=== PATIENT | male | born 1945 | race Caucasian/White ===

== ENCOUNTER 2023-08-16 11:44 | Outpatient (AMB) | payer MEDICARE, SELFPAY ==
--- NOTE | 2023-08-16 12:07 | HO.NEPHOV ---
HPI HPI Comments History of Present Illness Details Elderly man with a history of renal artery stenosis status post angioplasty and stent placement in the past. His shortness on hypertension and underlying CKD. Recently had an episode of BRIAN due to hypoperfusion in the setting of diarrhea and continues Ty inhibitors. After discontinuing Benicar and with IV hydration renal function improved. He underwent extensive workup for possible common nephritis however the serological workup was negative. He did undergo a kidney biopsy at [facility]. He also history of bilateral renal cyst. There was 2-3 complex appearing .cyst & follow-up MRA showed no change in size since 2019. He underwent a PET scan which did not reveal any malignant lesions [facility] Medical History (Updated 08/16/23 @ 12:33 by Guilherme Lee MD) Sleep apnea HTN (hypertension) Gout Diabetes CKD (chronic kidney disease) stage 2, GFR 60-89 ml/min Anemia Vital Signs 08/16/23 12:11 Height 6 ft Weight 239 lb 6 oz BMI 32.5 BP 132/78 Blood Pressure Location Lt brachial Position Sitting Pulse 59 Pulse Source Pulse Oximeter Pulse Oximetry (%) 96 Oxygen Delivery Method Room Air Physical Exam Vital Signs: Last Vital Signs Pulse 59 08/16/23 12:11 BP 132/78 08/16/23 12:11 Pulse Ox 96 08/16/23 12:11 Oxygen Delivery Method Room Air 08/16/23 12:11 BMI result Body Mass Index 32.5 Const General: comfortable Nutritional Appearance: well nourished Orientation/consciousness: patient oriented x3 HEENT Head: No normal to inspection Mouth: moist mucous membranes Neck Neck: Yes supple and Yes no JVD Resp Auscultation: clear to auscultation bilaterally, no rales and rub present Cardio Jugular venous distension: no JVD Palpation: no palpable S3 and no palpable S4 Heart sounds: no rubs GI Palpation (GI): Soft to palpation and nontender Percussion: No Fluid wave present General: Yes no CVA tenderness Back/Spine/Pelvis Back: no CVA tenderness Skin General skin exam: no rashes or lesions noted Neuro General: patient oriented x3 Extrem General: Yes no pedal edema and No clubbing Results Reviewed Results Reviewed: All results reviewed. He underwent a CT scan which revealed unilateral hydronephrosis. There has been a mild bump in the serum creatinine. Assessment & Plan Assessment & Plan (1) CKD (chronic kidney disease) stage 3, GFR 30-59 ml/min: Code(s): N18.30 - Chronic kidney disease, stage 3 unspecified (2) Renal artery stenosis: Code(s): I70.1 - Atherosclerosis of renal artery Plan Tray has a history of acute kidney injury superimposed on chronic disease. Chronic kidney disease is due to underlying hypertensive nephrosclerosis in the setting of renovascular disease. He had an episode of BRIAN due to hypoperfusion in the setting of diarrhea and use of Benicar. AKA resolved with IV hydration. He has sustained another episode of BRIAN Review recent CT scan reveals hydronephrosis. I will refer him back to Urology for further intervention. Ordered a set of labs for today. 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 Status post stent placement. At present blood pressure is better controlled. I have not made any changes to the antihypertensive regimen. Orders: Orders Electrolytes 08/16/23 N17.9 - Acute kidney failure, unspecified Calcium 08/16/23 N17.9 - Acute kidney failure, unspecified Creatinine Urine 08/16/23 N17.9 - Acute kidney failure, unspecified Neutrophil Cytoplasma Ab 08/16/23 N17.9 - Acute kidney failure, unspecified Complement C3 08/16/23 N17.9 - Acute kidney failure, unspecified Blood Urea Nitrogen 08/16/23 N17.9 - Acute kidney failure, unspecified Creatinine 08/16/23 N17.9 - Acute kidney failure, unspecified UA and rflx microscopic 08/16/23 N17.9 - Acute kidney failure, unspecified Total Protein Urine Random 08/16/23 N17.9 - Acute kidney failure, unspecified Uric Acid 08/16/23 N17.9 - Acute kidney failure, unspecified Complete Blood Count no Diff 08/16/23 N17.9 - Acute kidney failure, unspecified Complement C4 08/16/23 N17.9 - Acute kidney failure, unspecified Coding Level of Care Code Est Pt Level 4 (50341) Diagnoses CKD (chronic kidney disease) stage 3, GFR 30-59 ml/min N18.30 Renal artery stenosis I70.1
[2023-08-16 12:11] VITALS: BP 132/78; PULSE 59; O2SAT 96; BMI 32.5
== END 2023-08-16 12:41 | disposition home or self-care (01) ==
PROVIDERS: PCP Internal Medicine; Visit Provider Internal Medicine Hypertension Specialist
DX: N18.30 Chronic kidney disease, stage 3 unspecified (principal); I70.1 Atherosclerosis of renal artery
CPT/HCPCS: 99214

== ENCOUNTER → 2023-08-16 11:44 | Outpatient (BNVA) | payer MEDICARE, SELFPAY | PROVIDERS: PCP Internal Medicine; Visit Provider Internal Medicine Hypertension Specialist | DX: N18.2 Chronic kidney disease, stage 2 (mild) (principal); N17.9 Acute kidney failure, unspecified; I70.1 Atherosclerosis of renal artery; I10 Essential (primary) hypertension; Z95.5 Presence of coronary angioplasty implant and graft | CPT/HCPCS: 99212 ==

== ENCOUNTER 2023-08-16 12:44 | Outpatient (REF) | payer MEDICARE, SELFPAY ==
[2023-08-16 13:24] LABS: Appearance Urine Clear; Color Urine Dark Yellow; Glucose Urine UA Negative (Negative); Leukocyte Esterase Urine Small (1+) (Negative); Nitrite Urine Negative (Negative); PH 5.5 (5.0-9.0); UMIC TRIGGER UA YES; Urine Blood Negative (Negative); Urine Ketones Trace mg/dL (Negative); Urine Protein >=1000 (4+) mg/dL (Neg-Trace)
[2023-08-16 13:42] LABS: Hematocrit 29.9 % (42.0-52.0); Hemoglobin 9.5 g/dl (14.0-18.0); Mean Corpuscular HGB Conc 31.8 g/dl (31.0-36.0); Mean Corpuscular Hemoglobin 28.4 pg (27.0-33.0); Mean Corpuscular Volume 89.3 fL (80.0-98.0); Mean Platelet Volume 9.9 fL (9.4-12.4); Platelet Count 183 X10*3/uL (160-400); Red Blood Count 3.35 X10*6/uL (4.60-5.80); White Blood Count 7.8 X10*3/uL (4.8-10.8)
[2023-08-16 14:13] LABS: Anion Gap 14 (12-20); Blood Urea Nitrogen 36 mg/dL (9-16); Calcium 9.2 mg/dL (8.4-10.2); Carbon Dioxide 27 mmol/L (22-29); Chloride 105 mmol/L (96-108); Estimated Glomerular Filt Rate 34; Potassium 4.9 mmol/L (3.3-5.1); Sodium 141 mmol/L (135-145); Uric Acid 8.2 mg/dL (3.4-7.0)
[2023-08-16 14:34] LABS: Bacteria Urine None Seen (None Seen); Granular Casts Urine Present; Hyaline Casts Urine >20 /LPF (0-2); RBC Urine 0-2 /HPF (0-2); WBC Urine 21-50 /HPF (0-5)
[2023-08-16 14:44] LABS: Total Protein Urine Random 630 mg/dL (<12)
[2023-08-17 17:24] LABS: Complement C3 94 mg/dL (82-185)
[2023-08-22 14:04] LABS: Neutrophil Cyto Ab Screen NEGATIVE (NEGATIVE)
== END 2023-08-16 12:45 | disposition home or self-care (01) ==
LOC: HO.10HDL 12:44
PROVIDERS: Visit Provider Internal Medicine Hypertension Specialist
DX: N17.9 Acute kidney failure, unspecified (principal)
CPT/HCPCS: 36415; 80051; 81001; 82310; 82565; 82570; 84156; 84520; 84550; 85027; 86036; 86160

== ENCOUNTER 2023-09-27 15:43 | Outpatient (REF) | payer MEDICARE, SELFPAY ==
[2023-09-27 17:47] LABS: Hematocrit 27.8 % (42.0-52.0); Hemoglobin 8.9 g/dl (14.0-18.0); Mean Corpuscular Hemoglobin 29.2 pg (27.0-33.0); Mean Corpuscular Volume 91.1 fL (80.0-98.0); Mean Platelet Volume 9.5 fL (9.4-12.4); Platelet Count 210 X10*3/uL (160-400); Red Blood Count 3.05 X10*6/uL (4.60-5.80); Red Cell Distribution Width 18.9 % (11.0-16.0); White Blood Count 7.3 X10*3/uL (4.8-10.8)
[2023-09-27 18:11] LABS: Anion Gap 13 (12-20); Blood Urea Nitrogen 37 mg/dL (9-16); Carbon Dioxide 26 mmol/L (22-29); Chloride 108 mmol/L (96-108); Estimated Glomerular Filt Rate 32; Potassium 4.3 mmol/L (3.3-5.1); Sodium 143 mmol/L (135-145); Uric Acid 9.3 mg/dL (3.4-7.0)
== END 2023-09-27 15:44 | disposition home or self-care (01) ==
LOC: HO.LAB 15:43
PROVIDERS: PCP Internal Medicine; Visit Provider Internal Medicine Hypertension Specialist
DX: N18.30 Chronic kidney disease, stage 3 unspecified (principal); I70.1 Atherosclerosis of renal artery
CPT/HCPCS: 36415; 80051; 82310; 82565; 84520; 84550; 85027; 99212

== ENCOUNTER 2023-09-27 15:43 | Outpatient (AMB) | payer MEDICARE, SELFPAY ==
[2023-09-27 15:44] VITALS: BP 144/62; PULSE 61; O2SAT 97; BMI 33.0
--- NOTE | 2023-09-27 15:44 | HO.NEPHOV ---
HPI HPI Comments History of Present Illness Details Elderly man with a history of renal artery stenosis status post angioplasty and stent placement in the past. His shortness on hypertension and underlying CKD. Recently had an episode of BRIAN due to hypoperfusion in the setting of diarrhea and continues Ty inhibitors. After discontinuing Benicar and with IV hydration renal function improved. He underwent extensive workup for possible common nephritis however the serological workup was negative. He did undergo a kidney biopsy at [facility]. He also history of bilateral renal cyst. There was 2-3 complex appearing .cyst & follow-up MRA showed no change in size since 2019. He underwent a PET scan which did not reveal any malignant lesions 09/27/23 Stent was removed Had UTI - treated with Cipro Feels better now [facility] Medical History Sleep apnea HTN (hypertension) Gout Diabetes CKD (chronic kidney disease) stage 2, GFR 60-89 ml/min Anemia Vital Signs 09/27/23 15:44 09/27/23 15:57 Height 6 ft Weight 243 lb 2 oz BMI 33.0 BP 144/62 H 130/60 Blood Pressure Location Lt brachial Position Sitting Pulse 61 Pulse Source Pulse Oximeter Pulse Oximetry (%) 97 Oxygen Delivery Method Room Air Physical Exam Vital Signs: Last Vital Signs Pulse 61 09/27/23 15:44 BP 130/60 09/27/23 15:57 Pulse Ox 97 09/27/23 15:44 Oxygen Delivery Method Room Air 09/27/23 15:44 BMI result Body Mass Index 33.0 Const General: comfortable Nutritional Appearance: well nourished Orientation/consciousness: patient oriented x3 HEENT Head: No normal to inspection Mouth: moist mucous membranes Neck Neck: Yes supple and Yes no JVD Resp Auscultation: clear to auscultation bilaterally, no rales and rub present Cardio Jugular venous distension: no JVD Palpation: no palpable S3 and no palpable S4 Heart sounds: no rubs GI Palpation (GI): Soft to palpation and nontender Percussion: No Fluid wave present General: Yes no CVA tenderness Back/Spine/Pelvis Back: no CVA tenderness Skin General skin exam: no rashes or lesions noted Neuro General: patient oriented x3 Extrem General: Yes no pedal edema and No clubbing Assessment & Plan Assessment & Plan (1) CKD (chronic kidney disease) stage 3, GFR 30-59 ml/min: Code(s): N18.30 - Chronic kidney disease, stage 3 unspecified (2) Renal artery stenosis: Code(s): I70.1 - Atherosclerosis of renal artery Jem Feliz has a history of acute kidney injury superimposed on chronic disease. Chronic kidney disease is due to underlying hypertensive nephrosclerosis in the setting of renovascular disease. He had an episode of BRIAN due to hypoperfusion in the setting of diarrhea and use of Benicar. BRIAN resolved with IV hydration. He has sustained another episode of BRIAN Review recent CT scan reveals hydronephrosis. s/p Stent and removal s/p UTI - resolved Ordered a set of labs for today. 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 Status post stent placement. At present blood pressure is better controlled. I have not made any changes to the antihypertensive regimen. Keep on same antihypertensive Orders: Orders Electrolytes Today N18.30 - Chronic kidney disease, stage 3 unspecified Blood Urea Nitrogen Today N18.30 - Chronic kidney disease, stage 3 unspecified Creatinine Today N18.30 - Chronic kidney disease, stage 3 unspecified Calcium Today N18.30 - Chronic kidney disease, stage 3 unspecified Uric Acid Today N18.30 - Chronic kidney disease, stage 3 unspecified Complete Blood Count no Diff Today N18.30 - Chronic kidney disease, stage 3 unspecified Coding Level of Care Code Est Pt Level 4 (61365) Diagnoses CKD (chronic kidney disease) stage 3, GFR 30-59 ml/min N18.30 Renal artery stenosis I70.1 Results Reviewed Results Reviewed: Urine studies reviewed No nitrites as of 09/20/2023 Nephrology Results: Hgb 9.5 g/dl (14.0-18.0) L 08/16/23 WBC 7.8 X10*3/uL (4.8-10.8) 08/16/23 Plt Count 183 X10*3/uL (160-400) 08/16/23 Sodium 141 mmol/L (135-145) 08/16/23 Potassium 4.9 mmol/L (3.3-5.1) 08/16/23 Chloride 105 mmol/L (96-108) 08/16/23 Carbon Dioxide 27 mmol/L (22-29) 08/16/23 BUN 36 mg/dL (9-16) H 08/16/23 Creatinine 1.93 mg/dL (0.5-1.4) H 08/16/23 Calcium 9.2 mg/dL (8.4-10.2) 08/16/23 Phosphorus 3.8 MG/DL (2.7-4.5) 06/29/19 PTH Intact 86 pg/mL (14-64) H 06/29/19 Urine Protein >=1000 (4+) mg/dL (Neg-Trace) H 08/16/23 Urine Creatinine 224.38 mg/dL 08/16/23
[2023-09-27 15:57] VITALS: BP 130/60
== END 2023-09-27 16:01 | disposition home or self-care (01) ==
PROVIDERS: PCP Internal Medicine; Visit Provider Internal Medicine Hypertension Specialist
DX: N18.30 Chronic kidney disease, stage 3 unspecified (principal); I70.1 Atherosclerosis of renal artery
CPT/HCPCS: 99214

== ENCOUNTER 2023-11-15 13:28 | Outpatient (REF) | payer MEDICARE, SELFPAY ==
[2023-11-15 14:42] LABS: Alanine Aminotransferase 8 U/L (0-40); Albumin Level 3.6 g/dL (3.5-5.0); Alkaline Phosphatase 77 U/L (39-117); Anion Gap 13 (12-20); Aspartate Amino Transferase 13 U/L (5-37); Bilirubin Total 1.3 mg/dL (0.0-1.0); Blood Urea Nitrogen 38 mg/dL (9-16); Calcium 8.8 mg/dL (8.4-10.2); Carbon Dioxide 26 mmol/L (22-29); Chloride 108 mmol/L (96-108); Estimated Glomerular Filt Rate 30; Glucose Random 154 mg/dL (60-115); Potassium 4.4 mmol/L (3.3-5.1); Sodium 143 mmol/L (135-145)
== END 2023-11-15 13:29 | disposition home or self-care (01) ==
LOC: HO.LAB 13:28
PROVIDERS: Visit Provider Internal Medicine Hypertension Specialist
DX: I12.9 Hypertensive chronic kidney disease with stage 1 through stage 4 chronic kidney disease, or unspecified chronic kidney disease (principal); N18.30 Chronic kidney disease, stage 3 unspecified
CPT/HCPCS: 36415; 80053

== ENCOUNTER 2024-01-03 10:53 | Outpatient (AMB) | payer MEDICARE, SELFPAY ==
[2024-01-03 10:54] VITALS: BP 122/54; PULSE 61; O2SAT 97; BMI 32.5
--- NOTE | 2024-01-03 10:54 | HO.NEPHOV_ITS ---
HPI HPI Comments History of Present Illness Details Elderly man with a history of renal artery stenosis status post angioplasty and stent placement in the past. His shortness on hypertension and underlying CKD. Recently had an episode of BRIAN due to hypoperfusion in the setting of diarrhea and continues Ty inhibitors. After discontinuing Benicar and with IV hydration renal function improved. He underwent extensive workup for possible common nephritis however the serological workup was negative. He did undergo a kidney biopsy at [facility]. He also history of bilateral renal cyst. There was 2-3 complex appearing .cyst & follow-up MRA showed no change in size since 2019. He underwent a PET scan which did not reveal any malignant lesions 09/27/23 Stent was removed Had UTI - treated with Cipro Feels better now 01/03/24 Recently hospitalzied for dyspnea s/p Thoracenthesis Seen by Cardiology and waiting for follow up [facility] Medical History (Updated 11/14/23 @ 15:54 by Guilherme Lee MD) Sleep apnea HTN (hypertension) Gout Diabetes CKD (chronic kidney disease) stage 2, GFR 60-89 ml/min Anemia Social History (Updated 01/03/24 @ 10:56 by Krystal Art) Patient Tobacco Use Status: Former Tobacco user Use of substances other than those prescribed or required for medical reasons: No Vital Signs 01/03/24 10:54 Height 6 ft Weight 240 lb BMI 32.5 BP 122/54 L Blood Pressure Location Rt brachial Position Sitting Pulse 61 Pulse Source Pulse Oximeter Pulse Oximetry (%) 97 Oxygen Delivery Method Room Air Physical Exam Vital Signs: Last Vital Signs Pulse 61 01/03/24 10:54 BP 122/54 L 01/03/24 10:54 Pulse Ox 97 01/03/24 10:54 Oxygen Delivery Method Room Air 01/03/24 10:54 BMI result Body Mass Index 32.5 Const General: comfortable Nutritional Appearance: well nourished Orientation/consciousness: patient oriented x3 HEENT Head: No normal to inspection Mouth: moist mucous membranes Neck Neck: Yes supple and Yes no JVD Resp Auscultation: clear to auscultation bilaterally, no rales and rub present Cardio Jugular venous distension: no JVD Palpation: no palpable S3 and no palpable S4 Heart sounds: no rubs GI Palpation (GI): Soft to palpation and nontender Percussion: No Fluid wave present General: Yes no CVA tenderness Back/Spine/Pelvis Back: no CVA tenderness Skin General skin exam: no rashes or lesions noted Neuro General: patient oriented x3 Extrem General: Yes no pedal edema and No clubbing Assessment & Plan Assessment & Plan (1) CKD (chronic kidney disease) stage 3, GFR 30-59 ml/min: Code(s): N18.30 - Chronic kidney disease, stage 3 unspecified (2) Renal artery stenosis: Code(s): I70.1 - Atherosclerosis of renal artery Plan Tray has a history of acute kidney injury superimposed on chronic disease. Chronic kidney disease is due to underlying hypertensive nephrosclerosis in the setting of renovascular disease. He had an episode of BRIAN due to hypoperfusion in the setting of diarrhea and use of Benicar. BRIAN resolved with IV hydration. He has sustained another episode of BRIAN Review recent CT scan reveals hydronephrosis. s/p Stent and removal s/p UTI - resolved Currently Cr is around 2.1 and this bump is due to diuretics. 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 Status post stent placement. At present blood pressure is better controlled. He is NOT taking Losartan . Would not restart since BP is well controlled I have not made any changes to the antihypertensive regimen. Medications: On Hold losartan Hold Comment: Doctor's Order 25 mg PO DAILY 30 tabs 1RF Coding Level of Care Code Est Pt Level 4 (67321) Diagnoses CKD (chronic kidney disease) stage 3, GFR 30-59 ml/min N18.30 Renal artery stenosis I70.1 Results Reviewed Nephrology Results: Hgb 8.9 g/dl (14.0-18.0) L 09/27/23 WBC 7.3 X10*3/uL (4.8-10.8) 09/27/23 Plt Count 210 X10*3/uL (160-400) 09/27/23 Sodium 143 mmol/L (135-145) 11/15/23 Potassium 4.4 mmol/L (3.3-5.1) 11/15/23 Chloride 108 mmol/L (96-108) 11/15/23 Carbon Dioxide 26 mmol/L (22-29) 11/15/23 BUN 38 mg/dL (9-16) H 11/15/23 Creatinine 2.14 mg/dL (0.5-1.4) H 11/15/23 Calcium 8.8 mg/dL (8.4-10.2) 11/15/23 Phosphorus 3.8 MG/DL (2.7-4.5) 06/29/19 PTH Intact 86 pg/mL (14-64) H 06/29/19 Urine Protein >=1000 (4+) mg/dL (Neg-Trace) H 3 Urine Creatinine 224.38 mg/dL 08/16/23
== END 2024-01-03 11:21 | disposition home or self-care (01) ==
PROVIDERS: PCP Internal Medicine; Visit Provider Internal Medicine Hypertension Specialist
DX: N18.30 Chronic kidney disease, stage 3 unspecified (principal); I70.1 Atherosclerosis of renal artery
CPT/HCPCS: 99214

== ENCOUNTER → 2024-01-03 10:53 | Outpatient (BNVA) | payer MEDICARE, SELFPAY | PROVIDERS: PCP Internal Medicine; Visit Provider Internal Medicine Hypertension Specialist | DX: N18.30 Chronic kidney disease, stage 3 unspecified (principal); I70.1 Atherosclerosis of renal artery | CPT/HCPCS: 99212 ==

== ENCOUNTER 2024-04-09 09:22 | Outpatient (REF) | payer MEDICARE, SELFPAY ==
[2024-04-09 10:54] LABS: Appearance Urine Clear; Color Urine Dark Yellow; Glucose Urine UA 100 mg/dL (Negative); Leukocyte Esterase Urine Negative (Negative); Nitrite Urine Negative (Negative); PH 5.5 (5.0-9.0); Urine Blood Negative (Negative); Urine Ketones Trace mg/dL (Negative); Urine Protein >=1000 (4+) mg/dL (Neg-Trace)
[2024-04-09 11:14] LABS: Anion Gap 12 (12-20); Blood Urea Nitrogen 44 mg/dL (9-16); Calcium 9.4 mg/dL (8.4-10.2); Carbon Dioxide 26 mmol/L (22-29); Chloride 110 mmol/L (96-108); Estimated Glomerular Filt Rate 32; Glucose Random 105 mg/dL (60-115); Potassium 4.4 mmol/L (3.3-5.1); Sodium 144 mmol/L (135-145)
[2024-04-09 11:20] LABS: Parathyroid Hormone Intact 256.5 pg/mL (8.7-77.1)
== END 2024-04-09 09:23 | disposition home or self-care (01) ==
LOC: HO.LAB 09:22
PROVIDERS: PCP Internal Medicine; Visit Provider Internal Medicine Hypertension Specialist
DX: N18.30 Chronic kidney disease, stage 3 unspecified (principal); I70.1 Atherosclerosis of renal artery; N17.9 Acute kidney failure, unspecified
CPT/HCPCS: 36415; 80048; 81003; 83970; 99212

== ENCOUNTER 2024-04-09 09:22 | Outpatient (AMB) | payer MEDICARE, SELFPAY ==
[2024-04-09 09:21] VITALS: BP 150/62; PULSE 63; O2SAT 96; BMI 32.0
--- NOTE | 2024-04-09 09:21 | HO.NEPHOV_ITS ---
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 Accompanied by: Self / Same As Patient Allergies No Known Allergies Allergy (Verified 04/09/24 09:22) Medication List - Last Reconciled 04/09/24 by Guilherme Lee MD allopurinol 100 mg PO DAILY amlodipine 10 mg PO DAILY aspirin 81 mg PO DAILY atenolol 50 mg PO BID atorvastatin 40 mg PO DAILY cholecalciferol (vitamin D3) 125 mcg PO .monthly docosahexaenoic acid (Algal [place]-3 DHA) mg PO BID doxazosin 2 mg orally BID; folic acid 1 mg PO DAILY furosemide 40 mg PO DAILY isosorbide dinitrate 30 mg PO DAILY losartan 25 mg PO DAILY multivitamin 1 tab PO DAILY HPI Comments Details: Elderly man with a history of renal artery stenosis status post angioplasty and stent placement in the past. His shortness on hypertension and underlying CKD. Recently had an episode of BRIAN due to hypoperfusion in the setting of diarrhea and continues Ty inhibitors. After discontinuing Benicar and with IV hydration renal function improved. He underwent extensive workup for possible common nephritis however the serological workup was negative. He did undergo a kidney biopsy at [facility]. He also history of bilateral renal cyst. There was 2-3 complex appearing .cyst & follow-up MRA showed no change in size since 2019. He underwent a PET scan which did not reveal any malignant lesions 09/27/23 Stent was removed Had UTI - treated with Cipro Feels better now 01/03/24 Recently hospitalzied for dyspnea;s/p Thoracenthesis; Seen by Cardiology and waiting for follow up 04/09/2024. Shortness of breath has improved. He still has some during exertion. He was given Lasix 40 mg twice a day which has been decreased to once a day recently. Serum creatinine has been monitored every week and usually stays around 2.0-2.1 mg/dL. Underwent coronary angiogram on 04/06/24 [facility] Medical History (Updated 11/14/23 @ 15:54 by Guilherme Lee MD) Sleep apnea HTN (hypertension) Gout Diabetes CKD (chronic kidney disease) stage 2, GFR 60-89 ml/min Anemia Social History Patient Tobacco Use Status: Former Tobacco user Physical Exam Vital Signs: Last Vital Signs Pulse 63 04/09/24 09:21 BP 150/62 H 04/09/24 09:21 Pulse Ox 96 04/09/24 09:21 Oxygen Delivery Method Room Air 04/09/24 09:21 BMI result Body Mass Index 32.0 Const General: comfortable; No acute distress Orientation/consciousness: patient oriented x3 Eyes General: appearance normal, both eyes and all related structures Visual Herrera: normal visual herrera by confrontation Neck Neck: Yes supple and Yes no JVD Resp Effort & Inspection: normal respiratory effort and respiratory effort not decreased Auscultation: rhonchi Cardio Palpation: no palpable S3 and no palpable S4 Heart sounds: no rubs GI Inspection: Yes normal to inspection Palpation (GI): Soft to palpation Percussion: Yes normal to percussion Auscultation: normal bowel sounds General: Yes no CVA tenderness Back/Spine/Pelvis Back: no CVA tenderness Skin General skin exam: no petechiae and no purpura Neuro General: patient oriented x3 and no focal motor deficits Extrem General: No clubbing and No edema Results Reviewed Results Reviewed: As of 04/06/2024 creatinine 2.19 hemoglobin 9.3 Nephrology Results: Hgb 8.9 g/dl (14.0-18.0) L 09/27/23 WBC 7.3 X10*3/uL (4.8-10.8) 09/27/23 Plt Count 210 X10*3/uL (160-400) 09/27/23 Sodium 143 mmol/L (135-145) 11/15/23 Potassium 4.4 mmol/L (3.3-5.1) 11/15/23 Chloride 108 mmol/L (96-108) 11/15/23 Carbon Dioxide 26 mmol/L (22-29) 11/15/23 BUN 38 mg/dL (9-16) H 11/15/23 Creatinine 2.14 mg/dL (0.5-1.4) H 11/15/23 Calcium 8.8 mg/dL (8.4-10.2) 11/15/23 Phosphorus 3.8 MG/DL (2.7-4.5) 06/29/19 PTH Intact 86 pg/mL (14-64) H 06/29/19 Urine Protein >=1000 (4+) mg/dL (Neg-Trace) H 3 Urine Creatinine 224.38 mg/dL 08/16/23 Assessment & Plan Assessment & Plan (1) CKD (chronic kidney disease) stage 3, GFR 30-59 ml/min: Code(s): N18.30 - Chronic kidney disease, stage 3 unspecified Category: Medical (2) Renal artery stenosis: Code(s): I70.1 - Atherosclerosis of renal artery Category: Medical Plan Tray has a history of acute kidney injury superimposed on chronic disease. Chronic kidney disease is due to underlying hypertensive nephrosclerosis in the setting of renovascular disease. He had an episode of BRIAN due to hypoperfusion in the setting of diarrhea and use of Benicar. BRIAN resolved with IV hydration. He has sustained another episode of BRIAN Review recent CT scan reveals hydronephrosis. s/p Stent and removal s/p UTI - resolved Currently Cr is around 2.1 This is probably his baseline. Since he had a recent coronary angiogram with IV contrast I will recheck the serum creatinine today. . 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 Status post stent placement. At present blood pressure is better controlled. I have added Farxiga 5 mg once a day for cardiorenal protection. Side effects discussed Orders: Orders Parathyroid Hormone Intact Today N18.30 - Chronic kidney disease, stage 3 unspecified Basic Metabolic Panel Today N18.30 - Chronic kidney disease, stage 3 unspecified Medications: New dapagliflozin propanediol (Farxiga) 5 mg PO DAILY 30 tabs 3RF Coding Level of Care Code Est Pt Level 4 (93659) Diagnoses CKD (chronic kidney disease) stage 3, GFR 30-59 ml/min N18.30 Renal artery stenosis I70.1
== END 2024-04-09 09:50 | disposition home or self-care (01) ==
PROVIDERS: PCP Internal Medicine; Visit Provider Internal Medicine Hypertension Specialist
DX: N18.30 Chronic kidney disease, stage 3 unspecified (principal); I70.1 Atherosclerosis of renal artery
CPT/HCPCS: 99214